=== PATIENT | male | born 1985 | race Caucasian/White ===

== ENCOUNTER 2016-10-11 10:16 | Emergency (ER) | payer OTHER ==
[2016-10-11] MEDS ORDERED: DECADRON 10MG INJ. IM ONE (10:43)
[2016-10-11] MEDS ORDERED: TORAdol 30 mg Injection IM ONE (10:43)
--- NOTE | 2016-10-11 10:43 | ERPHSYRPT ---
- History of Present Illness Time Seen by Provider: 10/11/16 10:35 Source: patient Exam Limitations: no limitations Patient Subjective Stated Complaint: "My back has been hurting for a couple of days and today it is really bad." Triage Nursing Assessment: Pt alert and oriented X 3, skin pwd. Pt ambulates without difficulty, able to speak in full sentences. holding lower back Physician History: The patient is a 31-year-old male complaining of low back pain for 2-3 days. He states "I overdid it". He's had intermittent back pain in the past but nothing as bad as this. He's had an MRI before that has shown disc herniations. This episode of back pain is significant for numbness and pain radiating down his right leg. He has no trouble with urination or defecation. He denies any recent trauma. His past medical history is unremarkable except for back pain. Timing/Duration: day(s) (3) Method of Injury: lifting Quality: radiating, sharp Back Pain Location: lumbar spine Back Pain Radiation: upper legs, lower legs Severity of Pain-Max: moderate Severity of Pain-Current: moderate Modifying Factors: Improves With: nothing Associated Symptoms: numbness in legs/feet, lower back pain, muscle spasms, No urinary incontinence, No loss of bowel control, No weakness Previous symptoms: different symptoms Allergies/Adverse Reactions: trazodone Adverse Reaction (Verified 10/11/16 10:28) hot and cold flashes Hx Tetanus, Diphtheria Vaccination/Date Given: Yes Hx Influenza Vaccination/Date Given: Yes Hx Pneumococcal Vaccination/Date Given: Yes Immunizations Up to Date: Yes - Review of Systems Constitutional: No Fever, No Chills Eyes: No Symptoms Ears, Nose, & Throat: No Symptoms Respiratory: No Cough, No Dyspnea Cardiac: No Chest Pain, No Edema, No Syncope Abdominal/Gastrointestinal: No Abdominal Pain, No Nausea, No Vomiting, No Diarrhea Genitourinary Symptoms: No Dysuria Musculoskeletal: Back Pain Skin: No Rash Neurological: Sensory Changes Psychological: No Symptoms Endocrine: No Symptoms Hematologic/Lymphatic: No Symptoms Immunological/Allergic: No Symptoms All Other Systems: Reviewed and Negative - Past Medical History Pertinent Past Medical History: Yes Neurological History: No Pertinent History ENT History: No Pertinent History Cardiac History: No Pertinent History Respiratory History: No Pertinent History Endocrine Medical History: No Pertinent History Musculoskeletal History: Degenerative Disk Disease, Fractures GI Medical History: No Pertinent History History: No Pertinent History Psycho-Social History: Depression Male Reproductive Disorders: No Pertinent History - Past Surgical History Past Surgical History: Yes Neuro Surgical History: No Pertinent History Cardiac: No Pertinent History Respiratory: No Pertinent History Gastrointestinal: No Pertinent History Genitourinary: No Pertinent History Musculoskeletal: Orthopedic Surgery Male Surgical History: No Pertinent History Other Surgical History: ARM MUSCLE MISSING, - Social History Smoking Status: Current every day smoker How long have you smoked: year Exposure to second hand smoke: Yes Drug Use: none Patient Lives Alone: No - Nursing Vital Signs Nursing Vital Signs: Initial Vital Signs Temperature 98.0 F 10/11/16 10:20 Pulse Rate 74 10/11/16 10:20 Respiratory Rate 16 10/11/16 10:20 Blood Pressure 130/70 10/11/16 10:20 O2 Sat by Pulse Oximetry 97 10/11/16 10:20 Pain Scale Pain Intensity [Lower Back] 8 Pain Intensity 8 - Physical Exam General Appearance: mild distress Eye Exam: PERRL/EOMI, eyes nml inspection Ears, Nose, Throat Exam: normal ENT inspection Neck Exam: normal inspection, non-tender, supple, full range of motion, No meningismus, No midline tenderness Respiratory Exam: normal breath sounds, lungs clear, No respiratory distress Cardiovascular Exam: regular rate/rhythm, normal heart sounds Gastrointestinal Exam: soft, No tenderness, No mass Rectal Exam: not done Back Exam: decreased range of motion, muscle spasm (Examination of the back reveals muscle spasm of the distal part of the paraspinous muscles right greater than left. 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, normal mood/affect, nml station & gait, sensation nml, No motor deficits Skin Exam: normal color, warm, dry, No rash SpO2 Interpretation: normal SpO2: 97 Oxygen Delivery: Room Air - Progress Progress: improved Counseled pt/family regarding: diagnosis, need for follow-up - Departure Time of Disposition: 10:49 Departure Disposition: Home Clinical Impression: Back spasm, Sciatica associated with disorder of lumbar spine Condition: Stable Critical Care Time: No Referrals: LUIS ENRIQUE ROSADO [Primary Care Provider] - Additional Instructions: You have low back pain that is associated with the spasm of your back muscles and sciatica. The sciatica is caused by the herniation of the disc onto a nerve causing pain and numbness down your right leg. You were given Decadron 10 mg and Toradol 60 mg by IM in the ER. Take Flexeril 5-10 mg every 8 hours as needed for spasm. Follow-up with your doctor to discuss treatment and care for the sciatica and the numbness. Prescriptions: Cyclobenzaprine HCl [Flexeril] 5 mg PO Q8H PRN PRN #12 tablet PRN Reason: Pain
[2016-10-11] MEDS ORDERED: TORAdol 30 mg Injection ONE ×2 (10:47→10:50)
[2016-10-11] MEDS ORDERED: DECADRON 10MG INJ. ONE (10:47)
[2016-10-11 11:04] VITALS: BP 132/64; PULSE 68; O2SAT 99
== END 2016-10-11 11:04 | disposition home or self-care (01) ==
LOC: ED 10:16
DX: M62.830 Muscle spasm of back (principal); M54.30 Sciatica, unspecified side; M51.17 Intervertebral disc disorders with radiculopathy, lumbosacral region; M54.5 Low back pain
CPT/HCPCS: 96372; 99284; J1100; J1885